=== PATIENT | female | born 1965 | race Caucasian/White ===

== ENCOUNTER 2019-05-03 03:09 | Emergency (ER) | payer SELFPAY | END 2019-05-03 05:00 | disposition short-term general hospital (02) | LOC: ER 04:59 | DX: T26.42XA Burn of left eye and adnexa, part unspecified, initial encounter (principal); T26.41XA Burn of right eye and adnexa, part unspecified, initial encounter; X08.8XXA Exposure to other specified smoke, fire and flames, initial encounter; Y93.89 Activity, other specified; Y92.89 Other specified places as the place of occurrence of the external cause; Y99.8 Other external cause status | CPT/HCPCS: 99285 ==